=== PATIENT | female | born 1975 | race Two or more races ===

== ENCOUNTER 2024-08-18 15:31 | Inpatient (IN) | payer OTHER ==
[~2024-08-18] VITALS: Ht 152.4 cm; Wt 84.4 kg
[2024-08-18] MEDS ORDERED: COZAAR50 MG PO (16:13)
[2024-08-18] MEDS ORDERED: SIMVASTATIN5 MG PO (16:14)
[2024-08-18] MEDS ORDERED: SYNTHROID100 MCG PO (16:14)
[2024-08-18] MEDS ORDERED: HORIZANT300 MG PO (16:14)
[2024-08-18] MEDS ORDERED: LANTUS SOL100 UNIT/1 SQ (16:15)
[2024-08-18] MEDS ORDERED: HUMULIN N100 UNIT/2 IJ (16:15)
[2024-08-18] MEDS ORDERED: VANCOMYCIN HCL 1,000 MG VIAL IV SCH (17:05)
[2024-08-18] MEDS ORDERED: FAMOtidine 10 MG/ML (4ML VIAL) IV ONE (17:15)
[2024-08-18 17:40] LABS: HEMATOCRIT 32.3 % (36.0-45.00); HEMOGLOBIN 10.7 g/dL (12.0-15.00); MEAN CELL VOLUME 84.8 fL (80.00-100.00); PLATELET COUNT 521 K/uL (150-450); RED BLOOD COUNT 3.81 M/uL (4.00-6.00)
[2024-08-18 17:51] LABS: ERYTHROCYTE SEDIMENTATION RATE 99 mm/hr
[2024-08-18 18:00] LABS: INR 1.06; PARTIAL THROMBOPLASTIN TIME 25.5 SECONDS (22.0-34.0); PROTHROMBIN TIME 11.5 SECONDS (9.0-11.5)
[2024-08-18 18:04] LABS: ALBUMIN 2.3 gm/dL (3.4-5.0); BILIRUBIN TOTAL 0.36 mg/dL (0.3-1.2); CALCIUM 9.3 mg/dL (8.5-10.1); CREATININE SERUM 1.14 mg/dL (0.55-1.02); GFR 50.45; GLOBULINA 6.5 G/DL (2.4-3.5); POTASSIUM 3.43 mEq/L (3.5-5.1); TOTAL PROTEIN 8.8 gm/dL (6.4-8.2)
[2024-08-18 18:07] LABS: C-REACTIVE PROTEIN 8.96 MG/DL (0.00-0.29)
[2024-08-18] MEDS ORDERED: levoFLOXacin IN DEXTROSE 5 % 150 ML IV SCH (21:58)
[2024-08-18] MEDS ORDERED: ONDANSETRON HCL 4 MG in 0.9 % SODIUM CHLORIDE 50 ML IV PRN (22:00)
[2024-08-18] MEDS ORDERED: ACETAMINOPHEN 500 MG GEL..CAP PO PRN (22:00)
[2024-08-18] MEDS ORDERED: MORPHINE SULFATE 2 MG/ML CARTRIDGE IV PRN (22:00)
[2024-08-18] MEDS ORDERED: 0.9 % SODIUM CHLORIDE 1,000 ML IV SCH (22:00)
[2024-08-18] MEDS ORDERED: LOSARTAN POTASSIUM 50 MG TABLET PO SCH (22:07)
[2024-08-18] MEDS ORDERED: INSULIN LISPRO 1,000 UNIT/10 ML UNITS SUBCUTANEO PRN (22:15)
[2024-08-18] MEDS ORDERED: DEXTROSE 50 % IN WATER 0.5 G/ML DISP.SYRIN IV PRN (22:15)
[2024-08-18] MEDS ORDERED: ENOXAPARIN SODIUM 60 MG/0.6 ML SYRINGE SUBCUTANEO SCH (22:32)
[2024-08-18] MEDS ORDERED: GABAPENTIN 300 MG CAPSULE PO SCH (22:32)
[2024-08-19 02:12] VITALS: BP 155/79
[2024-08-19 02:46] LABS: URINE APPEARANCE Clear; URINE BILIRRUBIN Negative (NEGATIVE); URINE BLOOD Trace; URINE COLOR Yellow; URINE KETONE Negative (NEGATIVE); URINE LEUKOCYTE Negative; URINE NITRATE Negative; URINE PROTEIN Trace (NEGATIVE); URINE UROBILINOGEN 0.2 E.U./dl
[2024-08-19 02:50] LABS: URINE EPITHELIAL CELLS 26.8 uL (0.0-38.8); URINE RBC 26.2 uL (0.0-20.8); URINE WBC 14.5 uL (0.0-23.2)
[2024-08-19 03:02] LABS: INR 1.05; PARTIAL THROMBOPLASTIN TIME 26.7 SECONDS (22.0-34.0); PROTHROMBIN TIME 11.4 SECONDS (9.0-11.5)
[2024-08-19 03:15] LABS: URINE CAST 0.45 uL (0.0-1.40); URINE GLUCOSE >=1000 MG/DL (NEGATIVE)
[2024-08-19] MEDS ORDERED: LEVOTHYROXINE SODIUM 100 MCG TABLET PO SCH (06:00)
[2024-08-19 06:53] LABS: HEMATOCRIT 28.1 % (36.0-45.00); HEMOGLOBIN 9.2 g/dL (12.0-15.00); MEAN CELL VOLUME 85.6 fL (80.00-100.00); MEAN CORPUSCULAR HEMOGLOBIN 28.1 pg (27.00-32.0); MEAN CORPUSCULAR HGB CONC 32.8 g/dl (32.0-36.0); PLATELET COUNT 450 K/uL (150-450); RED BLOOD COUNT 3.28 M/uL (4.00-6.00); RED CELL DISTRIBUTION WIDTH 15.4 % (11.5-14.5)
[2024-08-19 08:28] VITALS: BP 136/85
[2024-08-19] MEDS ORDERED: VANCOMYCIN HCL 1,000 MG VIAL IV SCH (09:00)
[2024-08-19] MEDS ORDERED: PIPERACILLIN/TAZOBACTAM SODIUM 3.375 GM VIAL IV SCH (17:00)
[2024-08-19 18:38] VITALS: BP 131/85
[2024-08-19 18:49] VITALS: BP 157/85
[2024-08-19] MEDS ORDERED: levoFLOXacin IN DEXTROSE 5 % 150 ML IV SCH (21:00)
[2024-08-20 00:18] VITALS: BP 133/77; O2SAT 97
[2024-08-20 07:49] VITALS: BP 148/93
[2024-08-20 18:08] VITALS: BP 162/91
[2024-08-21 00:14] VITALS: BP 153/88; O2SAT 99
[2024-08-21 09:08] VITALS: BP 128/80; O2SAT 96
[2024-08-21 14:26] LABS: HEMATOCRIT 29.8 % (36.0-45.00); HEMOGLOBIN 9.6 g/dL (12.0-15.00); MEAN CELL VOLUME 86.2 fL (80.00-100.00); MEAN CORPUSCULAR HEMOGLOBIN 27.9 pg (27.00-32.0); MEAN CORPUSCULAR HGB CONC 32.4 g/dl (32.0-36.0); PLATELET COUNT 433 K/uL (150-450); RED BLOOD COUNT 3.45 M/uL (4.00-6.00); RED CELL DISTRIBUTION WIDTH 15.4 % (11.5-14.5)
[2024-08-21 15:08] LABS: CALCIUM 8.6 mg/dL (8.5-10.1); CREATININE SERUM 1.2 mg/dL (0.55-1.02); GFR 47.55; POTASSIUM 4.61 mEq/L (3.5-5.1)
[2024-08-21 18:16] VITALS: BP 175/98
[2024-08-22 01:53] VITALS: BP 126/82; O2SAT 99
[2024-08-22 09:01] VITALS: BP 139/85; O2SAT 96
[2024-08-22] MEDS ORDERED: METOPROLOL SUCCINATE 25 MG TAB.SR.24H PO SCH (17:00)
[2024-08-22 17:51] VITALS: BP 150/85
[2024-08-23 00:21] VITALS: BP 135/87; O2SAT 99
[2024-08-23 01:07] VITALS: O2SAT 95
[2024-08-23 08:50] VITALS: BP 142/87; O2SAT 97
[2024-08-23 11:25] LABS: HEMATOCRIT 29.5 % (36.0-45.00); HEMOGLOBIN 9.6 g/dL (12.0-15.00); MEAN CELL VOLUME 85.5 fL (80.00-100.00); MEAN CORPUSCULAR HEMOGLOBIN 27.7 pg (27.00-32.0); MEAN CORPUSCULAR HGB CONC 32.4 g/dl (32.0-36.0); PLATELET COUNT 469 K/uL (150-450); RED BLOOD COUNT 3.45 M/uL (4.00-6.00); RED CELL DISTRIBUTION WIDTH 15.3 % (11.5-14.5)
[2024-08-23] MEDS ORDERED: MORPHINE SULFATE 4 MG/ML CARTRIDGE IV PRN (15:30)
[2024-08-23] MEDS ORDERED: PIPERACILLIN/TAZOBACTAM SODIUM 3.375 GM VIAL IV ONE (16:30)
[2024-08-23] MEDS ORDERED: GABAPENTIN 300 MG CAPSULE PO SCH (17:00)
[2024-08-23] MEDS ORDERED: AMINO ACIDS/PROTEIN HYDROLYS 30 ML BLIST.PACK PO SCH (17:00)
[2024-08-23] MEDS ORDERED: AMINO ACIDS 1 EACH TABLET PO SCH (17:00)
[2024-08-23] MEDS ORDERED: MORPHINE SULFATE 4 MG/ML VIAL IV ONE ×3 (18:30→22:35)
[2024-08-23] MEDS ORDERED: ACETAMINOPHEN 500 MG GEL..CAP PO SCH (20:00)
[2024-08-23] MEDS ORDERED: GABAPENTIN 300 MG CAPSULE PO STA (20:53)
[2024-08-24 01:05] LABS: HEMATOCRIT 31.7 % (36.0-45.00); HEMOGLOBIN 10.1 g/dL (12.0-15.00); MEAN CELL VOLUME 86.6 fL (80.00-100.00); MEAN CORPUSCULAR HEMOGLOBIN 27.7 pg (27.00-32.0); PLATELET COUNT 454 K/uL (150-450); RED BLOOD COUNT 3.66 M/uL (4.00-6.00); RED CELL DISTRIBUTION WIDTH 15.5 % (11.5-14.5)
[2024-08-24 01:31] LABS: ALBUMIN 2.2 gm/dL (3.4-5.0); CALCIUM 8.7 mg/dL (8.5-10.1); CREATININE SERUM 1.02 mg/dL (0.55-1.02); GFR 57.36; PHOSPHOROUS 4.3 mg/dL (2.5-4.9); POTASSIUM 4.48 mEq/L (3.5-5.1)
[2024-08-24 02:41] VITALS: BP 117/63; O2SAT 93
[2024-08-24 09:30] VITALS: BP 111/71; O2SAT 98
[2024-08-24] MEDS ORDERED: FAMOTIDINE/PF 20 MG/2 ML VIAL IV PUSH SCH (13:03)
[2024-08-24] MEDS ORDERED: ONDANSETRON HCL 2 MG/ML VIAL IV PRN (13:15)
[2024-08-24 17:34] VITALS: BP 129/79; O2SAT 90
[2024-08-25 02:34] VITALS: BP 114/80; O2SAT 97
[2024-08-25] MEDS ORDERED: INSULIN GLARGINE,HUM.REC.ANLOG 1,000 UNITS/10 ML UNITS SUBCUTANEO SCH ×2 (09:00→12:11)
[2024-08-25 09:49] VITALS: BP 118/80; O2SAT 96
[2024-08-25 11:56] LABS: RH POSITIVE
[2024-08-25 16:49] VITALS: BP 127/83; O2SAT 92
[2024-08-26 02:43] VITALS: BP 128/83; O2SAT 93
[2024-08-26 06:39] LABS: HEMATOCRIT 26.8 % (36.0-45.00); MEAN CELL VOLUME 86.5 fL (80.00-100.00); MEAN CORPUSCULAR HGB CONC 31.8 g/dl (32.0-36.0); PLATELET COUNT 364 K/uL (150-450); RED CELL DISTRIBUTION WIDTH 15.8 % (11.5-14.5)
[2024-08-26 06:48] LABS: HEMOGLOBIN 8.5 g/dL (12.0-15.00); MEAN CORPUSCULAR HEMOGLOBIN 27.4 pg (27.00-32.0)
[2024-08-26] MEDS ORDERED: SULFAMETHOXAZOLE/TRIMETHOPRIM DS 1 TAB PO SCH ×2 (09:00→13:00)
[2024-08-26] MEDS ORDERED: levoFLOXacin 750 MG TABLET PO SCH (09:00)
[2024-08-26 09:03] VITALS: BP 138/86
[2024-08-26 17:44] VITALS: BP 147/87
[2024-08-26] MEDS ORDERED: INSULIN GLARGINE,HUM.REC.ANLOG 1,000 UNITS/10 ML UNITS SUBCUTANEO SCH (21:00)
[2024-08-27 00:42] VITALS: BP 136/79; O2SAT 98
[2024-08-27 08:36] VITALS: BP 121/77
[2024-08-27] MEDS ORDERED: MORPHINE SULFATE 2 MG/ML CARTRIDGE IV PRN (11:08)
[2024-08-27] MEDS ORDERED: KETOROLAC TROMETHAMINE 30 MG VIAL IV NR (12:00)
[2024-08-27 13:28] LABS: HEMATOCRIT 27.3 % (36.0-45.00); HEMOGLOBIN 9.1 g/dL (12.0-15.00); MEAN CELL VOLUME 84.9 fL (80.00-100.00); MEAN CORPUSCULAR HEMOGLOBIN 28.3 pg (27.00-32.0); MEAN CORPUSCULAR HGB CONC 33.3 g/dl (32.0-36.0); PLATELET COUNT 352 K/uL (150-450); RED BLOOD COUNT 3.21 M/uL (4.00-6.00); RED CELL DISTRIBUTION WIDTH 15.9 % (11.5-14.5)
[2024-08-27] MEDS ORDERED: GABAPENTIN 400 MG CAPSULE PO SCH (17:00)
[2024-08-27 18:57] VITALS: BP 130/84; O2SAT 97
[2024-08-27] MEDS ORDERED: FAMOtidine 20 MG TABLET PO SCH (21:00)
[2024-08-28 00:32] VITALS: BP 126/83; O2SAT 97
[2024-08-28 09:14] VITALS: BP 145/80
[2024-08-28 11:03] LABS: HEMOGLOBIN 10.6 g/dL (12.0-15.00); MEAN CELL VOLUME 85.8 fL (80.00-100.00); MEAN CORPUSCULAR HEMOGLOBIN 27.5 pg (27.00-32.0); MEAN CORPUSCULAR HGB CONC 32.1 g/dl (32.0-36.0); PLATELET COUNT 418 K/uL (150-450); RED BLOOD COUNT 3.85 M/uL (4.00-6.00); RED CELL DISTRIBUTION WIDTH 15.8 % (11.5-14.5)
== END 2024-08-28 13:59 | DRG 617 ==
LOC: ER 15:33 → MEDJ 22:21
PROVIDERS: General Practice; Student in an Organized Health Care Education/Training Program; ADMIT Internal Medicine; ATTEND Internal Medicine
PROC: B54DZZZ Ultrasonography of Bilateral Lower Extremity Veins (ICD-10-PCS; 2024-08-18)
PROC: B44HZZZ Ultrasonography of Bilateral Lower Extremity Arteries (ICD-10-PCS; 2024-08-19)
PROC: 0JBR0ZZ Excision of Left Foot Subcutaneous Tissue and Fascia, Open Approach (ICD-10-PCS; 2024-08-22)
PROC: 0Y6J0Z1 Detachment at Left Lower Leg, High, Open Approach (ICD-10-PCS; principal; 2024-08-23 12:15)
PROC: 30233N1 Transfusion of Nonautologous Red Blood Cells into Peripheral Vein, Percutaneous Approach (ICD-10-PCS; 2024-08-27)
DX: E11.621 Type 2 diabetes mellitus with foot ulcer (principal); D62 Acute posthemorrhagic anemia; L97.428 Non-pressure chronic ulcer of left heel and midfoot with other specified severity; M86.172 Other acute osteomyelitis, left ankle and foot; E11.51 Type 2 diabetes mellitus with diabetic peripheral angiopathy without gangrene; E11.65 Type 2 diabetes mellitus with hyperglycemia; D64.89 Other specified anemias; I10 Essential (primary) hypertension; E03.9 Hypothyroidism, unspecified; E78.5 Hyperlipidemia, unspecified; Z79.4 Long term (current) use of insulin; B96.89 Other specified bacterial agents as the cause of diseases classified elsewhere